=== PATIENT | female | born 1995 | race Hispanic/Latino ===

== ENCOUNTER 2018-11-01 02:03 | Emergency (ER) | payer OTHER ==
[2018-11-01 02:28] VITALS: BMI 21.2
[2018-11-01] MEDS ORDERED: Sodium Chloride 0.9% 1,000 ML IV STA (02:49)
--- NOTE | 2018-11-01 02:56 | ED PDOC ---
HPI: Abdomen Time Seen by Provider: 11/01/18 02:26 Chief Complaint (Nursing): Abdominal Pain Chief Complaint (Provider): Abdominal Pain History Per: Patient History/Exam Limitations: no limitations Onset/Duration Of Symptoms: Hrs Current Symptoms Are (Timing): Still Present Additional Complaint(s): 23 year old female with pmHx of a twisted colon and appendectomy, presents to the emergency department for a sudden onset of severe right, upper abdominal pain associated with vomiting since 2330 earlier tonight. Patient admits to drinking wine prior to onset of symptoms and notes that her menses recently ended on 10/30/18. 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 Of note, patient reports that a colonoscopy was performed for initial diagnosis of twisted colon in 09/2018 which had benign findings. PCP: none provided Past Medical History Reviewed: Historical Data, Nursing Documentation, Vital Signs Vital Signs: Last Vital Signs Temp 97.4 F L 11/01/18 02:29 Pulse 86 11/01/18 02:29 Resp 18 11/01/18 02:29 BP 107/73 11/01/18 02:29 Pulse Ox 97 11/01/18 02:29 - Medical History Other PMH: twisted colon - Surgical History Surgical History: Appendectomy - Family History Family History: States: Unknown Family Hx - Social History Alcohol: Social - Home Medications Home Medications: Ambulatory Orders Medication Instructions Recorded Ciprofloxacin [Cipro] 500 mg PO BID #14 tab 11/01/18 Dicyclomine [Bentyl] 10 mg PO TID PRN #12 cap 11/01/18 Ondansetron ODT [Zofran ODT] 4 mg PO Q6 PRN #10 odt 11/01/18 Ranitidine HCl [Zantac] 150 mg PO BID #20 tablet 11/01/18 metroNIDAZOLE [Flagyl] 500 mg PO TID #21 tab 11/01/18 - Allergies Allergies/Adverse Reactions: Allergies Allergy/AdvReac Type Severity Reaction Status Date / Time No Known Allergies Allergy Verified 11/01/18 02:28 Review of Systems ROS Statement: Except As Marked, All Systems Reviewed And Found Negative Cardiovascular: Negative for: Chest Pain Respiratory: Negative for: Cough, Shortness of Breath Gastrointestinal: Positive for: Nausea, Vomiting, Abdominal Pain (upper right) Physical Exam - Reviewed Nursing Documentation Reviewed: Yes Vital Signs Reviewed: Yes - Physical Exam Appears: Positive for: Uncomfortable, In Acute Distress (painful) Gastrointestinal/Abdominal: Positive for: Tenderness (RUQ), Other (physical is limted secondary to severe pain. patient is observed hunched over, cradling abdomen) Neurologic/Psych: Positive for: Alert, Oriented (x3), Mood/Affect (tearful). Negative for: Motor/Sensory Deficits - Laboratory Results Result Diagrams: 11/01/18 04:04 11/01/18 04:04 - ECG O2 Sat by Pulse Oximetry: 97 (RA) Pulse Ox Interpretation: Normal Medical Decision Making Medical Decision Making: Time: 248 Initial Plan: patient presents with RUQ pain. work-up for cholecystitis vs. other abdominal abnormality. * Labs with UA * Morphine 2mg IVP * IV fluids * Zofran 4mg IVP * Re-assessment when symptoms improve Time: 040 --Patient reports temporarily improvement status post morphine. Proper abdomen physic initiated: abdomen is soft with significant tenderness on palpation localized in RUQ. (+) Alexis's sign. Additional 2mg Morphine IVP ordered for pain control. Time: 050 --US ABD Findings: Liver is normal in size measuring 16 cm. Normal gallbladder wall thickness measuring 2.4 mm. No evidence of cholelithiasis. Negative sonographic Alexis. Nondilated common bile duct measuring 2.5 mm. Unremarkable pancreas, aorta and IVC. Unremarkable right kidney. Impression: Unremarkable exam. Time: 05 --CT ABD/pelvis additionally ordered for persistent RUQ pain. Time: 06 --Patient is unable to tolerate PO contrast for CT. Will order CT ABD/pelvis with IV contrast in place. Time: 729 --Patient is being endorsed to Haroldo Ledezma III, DO. Pending reevaluation. Scribe Attestation: Documented by Jayna Maurice, acting as a scribe for Isamar Waters MD. Provider Scribe Attestation: All medical record entries made by the Scribe were at my direction and personally dictated by me. I have reviewed the chart and agree that the record accurately reflects my personal performance of the history, physical exam, medical decision making, and the department course for this patient. I have also personally directed, reviewed, and agree with the discharge instructions and disposition. Disposition - Clinical Impression Clinical Impression: Abdominal pain, Constipation, Gastritis, Diverticulosis - Patient ED Disposition Is Patient to be Admitted: Transfer of Care Discussed With Dr.: Haroldo Ledezma III - Disposition Referrals: Nicholas Clark MD [Staff Provider] - Disposition Time: 07:30 Condition: STABLE Additional Instructions: FOLLOWUP WITH PMD AND OR GI DOCTOR IN 2-3 DAYS. RETURN TO ER FOR ANY WORSE OR NEW SYMPTOMS, VOMITING, BLOOD IN STOOL, FEVER, OR ANY CONCERN. TAKE MEDICATIONS DIRECTED. RECOMMEND STOOL SOFTENERS NEEDED AND DISCUSSED FOR RELIEF OF CONSTIPATION. Prescriptions: Ciprofloxacin [Cipro] 500 mg PO BID #14 tab Dicyclomine [Bentyl] 10 mg PO TID PRN #12 cap PRN Reason: Gi Distress metroNIDAZOLE [Flagyl] 500 mg PO TID #21 tab Ondansetron ODT [Zofran ODT] 4 mg PO Q6 PRN #10 odt PRN Reason: Nausea/Vomiting Ranitidine HCl [Zantac] 150 mg PO BID #20 tablet Instructions: Constipation, Adult (DC), Acute Abdomen (Belly Pain) Forms: [employer] (Kyrgyz)
[2018-11-01] MEDS ORDERED: Morphine 4 MG/ML VIAL IVP ONE (03:29)
[2018-11-01] MEDS ORDERED: Morphine 4 MG/ML VIAL ONE (03:32)
[2018-11-01 03:53] LABS: VENOUS BLOOD GAS BASE EXCESS 1.7 mmol/L (0.0-2.0); VENOUS BLOOD GAS PCO2 38 mmHg (40-60); VENOUS BLOOD GAS PO2 26 mm/Hg (30-55); VENOUS BLOOD PH 7.44 (7.32-7.43)
[2018-11-01 04:13] LABS: SQUAMOUS EPITHIAL 3 /hpf (0-5); URINE BACTERIA RARE (<OCC); URINE BILIRUBIN NEGATIVE (NEGATIVE); URINE BLOOD MODERATE (NEGATIVE); URINE CLARITY SLIGHTY-CLOUDY (Clear); URINE COLOR YELLOW (YELLOW); URINE GLUCOSE (UA) NEG (NEGATIVE); URINE LEUKOCYTE ESTERASE NEG Leu/uL (Negative); URINE PROTEIN NEGATIVE (NEGATIVE); URINE UROBILINOGEN 0.2-1.0 mg/dL (0.2-1.0)
[2018-11-01 04:24] LABS: BASO % 0.4 % (0.0-2.0); EOS # 0.3 K/uL (0.0-0.7); HEMOGLOBIN 13.1 g/dL (12.0-16.0); LYMPH # 1.6 K/uL (1.0-4.3); LYMPH % 28.4 % (20.0-40.0); MEAN CELL VOLUME 89.5 fl (81.0-99.0); MEAN CORPUSCULAR HEMOGLOBIN 29.6 pg (27.0-31.0); MEAN CORPUSCULAR HGB CONC 33.1 g/dL (33.0-37.0); MEAN PLATELET VOLUME 7.5 fl (7.2-11.7); MONO # 0.5 K/uL (0.0-0.8); MONO % 9.1 % (0.0-10.0); NEUT # 3.3 K/uL (1.8-7.0); NEUT % 57.1 % (50.0-75.0); NRBC % 0.1 % (0.0-0.0); RBC 4.43 Mil/uL (3.80-5.20); RED CELL DISTRIBUTION WIDTH 14.8 % (11.5-14.5); WHITE BLOOD COUNT 5.8 K/uL (4.8-10.8)
[2018-11-01 04:43] LABS: ALB/GLOB RATIO 1.1 (1.0-2.1); ALBUMIN 4.2 g/dL (3.5-5.0); ALT/SGPT 41 U/L (9-52); AST/SGOT 49 U/L (14-36); BLOOD UREA NITROGEN 14 mg/dl (7-17); CALCIUM 9.3 mg/dL (8.4-10.2); GFR NON-AFRICAN AMERICAN > 60; LIPASE 36 U/L (23-300)
[2018-11-01] MEDS: Iohexol 240 (50 ml) PO ONE ×2 (05:54→06:36)
[2018-11-01] MEDS ORDERED: Iohexol 300 100 ML IJ ONE (06:47)
[2018-11-01] MEDS ORDERED: Sodium Chloride 0.9% 50 ML IV ONE (06:47)
--- NOTE | 2018-11-01 07:32 | ED PDOC ---
- Laboratory Results Result Diagrams: 11/01/18 04:04 11/01/18 04:04 Lab Results: pO2 26 mm/Hg (30-55) L 11/01/18 03:49 VBG pH 7.44 (7.32-7.43) H 11/01/18 03:49 VBG pCO2 38 mmHg (40-60) L 11/01/18 03:49 VBG HCO3 25.0 mmol/L 11/01/18 03:49 VBG Total CO2 27.0 mmol/L (22-28) 11/01/18 03:49 VBG O2 Sat (Calc) 47.0 % (40-65) 11/01/18 03:49 VBG Base Excess 1.7 mmol/L (0.0-2.0) 11/01/18 03:49 VBG Potassium 3.8 mmol/L (3.6-5.2) 11/01/18 03:49 Sodium 141.0 mmol/L (132-148) 11/01/18 03:49 Chloride 109.0 mmol/L (98-107) H 11/01/18 03:49 Glucose 97 mg/dL (65-105) 11/01/18 03:49 Lactate 2.2 mmol/L (0.7-2.1) H 11/01/18 03:49 FiO2 21.0 % 11/01/18 03:49 Total Bilirubin 0.6 mg/dl (0.2-1.3) 11/01/18 04:04 AST 49 U/L (14-36) H 11/01/18 04:04 ALT 41 U/L (9-52) 11/01/18 04:04 Alkaline Phosphatase 49 U/L (38-126) 11/01/18 04:04 Total Protein 8.0 G/DL (6.3-8.2) 11/01/18 04:04 Albumin 4.2 g/dL (3.5-5.0) 11/01/18 04:04 Globulin 3.8 gm/dL (2.2-3.9) 11/01/18 04:04 Albumin/Globulin Ratio 1.1 (1.0-2.1) 11/01/18 04:04 Lipase 36 U/L (23-300) 11/01/18 04:04 Urine Color Yellow (YELLOW) 11/01/18 04:04 Urine Clarity Slighty-cloudy (Clear) 11/01/18 04:04 Urine pH 6.0 (5.0-8.0) 11/01/18 04:04 Ur Specific [place] 1.014 (1.003-1.030) 11/01/18 04:04 Urine Protein Negative mg/dL (NEGATIVE) 11/01/18 04:04 Urine Glucose (UA) Neg mg/dL (NEGATIVE) 11/01/18 04:04 Urine Ketones Negative mg/dL (NEGATIVE) 11/01/18 04:04 Urine Blood Moderate (NEGATIVE) 11/01/18 04:04 Urine Nitrate Negative (NEGATIVE) 11/01/18 04:04 Urine Bilirubin Negative (NEGATIVE) 11/01/18 04:04 Urine Urobilinogen 0.2-1.0 mg/dL (0.2-1.0) 11/01/18 04:04 Ur Leukocyte Esterase Neg Juliana/uL (Negative) 11/01/18 04:04 Urine RBC (Auto) 1 /hpf (0-3) 11/01/18 04:04 Urine Microscopic WBC 2 /hpf (0-5) 11/01/18 04:04 Ur Squamous Epith Cells 3 /hpf (0-5) 11/01/18 04:04 Urine Bacteria Rare (<OCC) 11/01/18 04:04 - ECG O2 Sat by Pulse Oximetry: 97 (RA) Medical Decision Making Medical Decision Making: Time: 729 Patient being endorsed to provider from Isamar Waters MD. Pending reevaluation. Time: 718 CT ABD & PELVIS COMMENTS: Uncomplicated colonic diverticulosis. Moderate amount of fecal residue in the large bowels. Unremarkable intrauterine device. Prior appendectomy. Diffuse thickening of the stomach. Distended bladder. The liver is of uniform attenuation without mass or defect. There is no intra or extrahepatic biliary ductal dilatation. The spleen is normal. The gallbladder is within normal limits. The pancreas is of normal contour and attenuation characteristics. There is no evidence of adrenal mass. Both kidneys demonstrate prompt and equal nephrograms. The kidneys are normal in size, shape and configuration. There is no evidence of renal or ureteral mass. No renal or ureteral calculi are identified. There is no hydroureter or hydronephrosis. No evidence for appendicitis. There is no bowel wall thickening. No evidence for small or large bowel obstruction. There is no evidence of abdominal ascites or lymphadenopathy. There is no evidence of intrinsic or extrinsic bladder mass. There is no pelvic ascites or lymphadenopathy. Images of the lung bases show no evidence of pleural or parenchymal mass. There are no pleural effusions. The bony structures are free of lytic or blastic lesions. IMPRESSION: Uncomplicated colonic diverticulosis. Moderate amount of fecal residue in the large bowels. Constipation. Unremarkable intrauterine device. Prior appendectomy. Diffuse thickening of the stomach. Gastritis. Distended bladder. Electronically signed on Nov 01, 2018 7:19:52 AM EST by: Abdi Henning M.D., Certified by [facility], K, Neuroradiology 11am re-eval states feeling better, minimal nausea, tolerating PO, wants to go home, ABD EXAM NONTENDER X4 QUAD, hasnt received any narcotics since 530a. She has GI doc to follow with, has miralax and senna at home, states had colonscopy in last several years, Rx zantac, bentyl and zofran and rec followup GI and PMD Scribe Attestation: Documented by Zac Allen, acting as a scribe for Haroldo Ledezma III, DO. Provider Scribe Attestation: All medical record entries made by the Scribe were at my direction and per sonally dictated by me. I have reviewed the chart and agree that the record accurately reflects my personal performance of the history, physical exam, medical decision making, and the department course for this patient. I have also personally directed, reviewed, and agree with the discharge instructions and disposition. Disposition Counseled Patient/Family Regarding: Studies Performed, Diagnosis, Need For Followup - Clinical Impression Clinical Impression: Abdominal pain, Constipation, Gastritis, Diverticulosis - POA Present On Arrival: None - Disposition Referrals: Nicholas Clark MD [Staff Provider] - Disposition: Routine/Home Disposition Time: 11:00 Condition: STABLE Additional Instructions: FOLLOWUP WITH PMD AND OR GI DOCTOR IN 2-3 DAYS. RETURN TO ER FOR ANY WORSE OR NEW SYMPTOMS, VOMITING, BLOOD IN STOOL, FEVER, OR ANY CONCERN. TAKE MEDICATIONS DIRECTED. RECOMMEND STOOL SOFTENERS NEEDED AND DISCUSSED FOR RELIEF OF CONSTIPATION. Prescriptions: Dicyclomine [Bentyl] 10 mg PO TID PRN #12 cap PRN Reason: Gi Distress Ondansetron ODT [Zofran ODT] 4 mg PO Q6 PRN #10 odt PRN Reason: Nausea/Vomiting Ranitidine HCl [Zantac] 150 mg PO BID #20 tablet Instructions: Constipation, Adult (DC), Acute Abdomen (Belly Pain) Forms: [employer] (Malay)
--- NOTE | 2018-11-01 10:43 | US ---
Date of service: 11/01/2018 HISTORY: RUQ pain COMPARISON: None. TECHNIQUE: Sonographic evaluation of the right upper quadrant of the abdomen. FINDINGS: LIVER: Measures 16 cm in length. Normal echogenicity of the liver parenchyma. No mass. No intrahepatic bile duct dilatation. GALLBLADDER: Unremarkable. No gallstones. COMMON BILE DUCT: Measures 3 mm. No stones. No dilatation. PANCREAS: Unremarkable as visualized. No mass. No ductal dilatation. RIGHT KIDNEY: Measures 11.0 x 5.5 x 5.4 cm in length. Normal echogenicity. No calculus, mass, or hydronephrosis. AORTA: No aneurysmal dilatation. IVC: Unremarkable. OTHER FINDINGS: None . IMPRESSION:
--- NOTE | 2018-11-01 10:52 | CT ---
Date of service: 11/01/2018 PROCEDURE: CT Abdomen and Pelvis with contrast HISTORY: vomiting, RUQ abd pain. History of volvulus COMPARISON: None. TECHNIQUE: Contrast dose: 80 mL Omnipaque 300 Radiation dose: Total exam DLP = 295.72 mGy-cm. This CT exam was performed using one or more of the following dose reduction techniques: Automated exposure control, adjustment of the mA and/or kV according to patient size, and/or use of iterative reconstruction technique. FINDINGS: LOWER THORAX: Unremarkable. LIVER: 8 mm too small to characterize medial right hepatic lobe hypodensity. No gross lesion or ductal dilatation. GALLBLADDER AND BILE DUCTS: Unremarkable. PANCREAS: Unremarkable. No gross lesion or ductal dilatation. SPLEEN: Unremarkable. ADRENALS: Unremarkable. No mass. KIDNEYS AND URETERS: Unremarkable. No hydronephrosis. No solid mass. VASCULATURE: Unremarkable. No aortic aneurysm. No aortic atherosclerotic calcification or mural plaque present. BOWEL: Short segment thickening of the proximal to mid transverse colon. No obstruction. No gross mural thickening. APPENDIX: Prior appendectomy. PERITONEUM: Unremarkable. No free fluid. No free air. LYMPH NODES: Unremarkable. No enlarged lymph nodes. BLADDER: Unremarkable. REPRODUCTIVE: Intrauterine device in place. BONES: No acute fracture. OTHER FINDINGS: None. IMPRESSION: Infectious/inflammatory proximal to mid transverse colitis. This finding was not reported by [facility] radi[facility]. ER notification submitted electronically.
[2018-11-01 11:01] VITALS: TEMP 98.2
[2018-11-01 11:56] VITALS: BP 108/69; PULSE 71; RESP 18
[2018-11-05 11:06] VITALS: O2SAT 97
== END 2018-11-01 11:17 | disposition home or self-care (01) ==
LOC: H.ER 02:03
DX: R10.11 Right upper quadrant pain (principal); K29.70 Gastritis, unspecified, without bleeding; K57.30 Diverticulosis of large intestine without perforation or abscess without bleeding; Z79.899 Other long term (current) drug therapy; R11.0 Nausea
CPT/HCPCS: 74177; 76705; 80053; 81003; 81025; 82803; 83690; 85025; 96374; 96375; 96376; 99284; J1885; J2270; J2405; J7030; Q9967